=== PATIENT | male | born 1995 | race African-American/Black ===

== ENCOUNTER 2018-09-19 20:04 | Emergency (ER) | payer SELFPAY ==
[~2018-09-19] VITALS: Ht 193 cm; Wt 113.4 kg
[2018-09-19] MEDS ORDERED: VIBRAMYCIN100 MG PO (20:47)
== END 2018-09-19 21:00 | disposition home or self-care (01) ==
LOC: ED 20:04
PROVIDERS: Physician Assistant
DX: S70.362A Insect bite (nonvenomous), left thigh, initial encounter (principal); R50.9 Fever, unspecified; R53.83 Other fatigue; W57.XXXA Bitten or stung by nonvenomous insect and other nonvenomous arthropods, initial encounter; Y93.89 Activity, other specified; Y92.89 Other specified places as the place of occurrence of the external cause; Y99.8 Other external cause status